=== PATIENT | male | born 1955 | race Caucasian/White ===

== ENCOUNTER 2016-10-29 11:46 | Emergency (ER) | payer OTHER ==
[~2016-10-29] VITALS: Ht 175.3 cm; Wt 80.0 kg
[~2016-10-29 11:46] MED LIST: LEVO.15 PO; VALT1TAB26 PO; [UNRECOGNIZED DRUG - CODE] PO
[2016-10-29 11:49] VITALS: BP 106/67; PULSE 116; RESP 16; TEMP 97.7; O2SAT 97
[2016-10-29] MEDS ORDERED: SODIUM CHLOR 0.9% 1000 ML INJ 1,000 ML IV SCH (12:31)
[2016-10-29] MEDS ORDERED: BACT800T5 PO (12:34)
[2016-10-29] MEDS ORDERED: [UNRECOGNIZED DRUG - CODE] PO (12:34)
[2016-10-29] MEDS ORDERED: LEVO.2 PO (12:34)
[2016-10-29] MEDS ORDERED: VALA1TAB PO (12:34)
[2016-10-29 12:35] VITALS: O2SAT 97
[2016-10-29] MEDS ORDERED: SODIUM CHLORIDE 0.9% FLUSH 5 ML FLUSH IVF PRN ×2 (12:45→16:00)
[2016-10-29] MEDS ORDERED: ONDANSETRON HCL 4 MG/2 ML VIAL IVP ONE (12:45)
[2016-10-29 13:01] LABS: BASOPHIL % 0.2 % (0.0-2.0); EOSINOPHIL % 0.3 % (0.0-4.0); HEMATOCRIT 47.2 % (39.0-51.0); HEMO FLAGS DIFF FINAL; LYMPH % 44.3 % (9.0-44.0); LYMPHOCYTE # 2.9 TH/MM3 (1.0-4.8); MEAN CELL VOLUME 96.4 FL (80.0-100.0); MEAN CORPUSCULAR HEMOGLOBIN 33.6 PG (27.0-34.0); MEAN CORPUSCULAR HGB CONC 34.9 % (32.0-36.0); MONO % 8.8 % (0.0-8.0); NEUT % 46.4 % (16.0-70.0); PLATELET COUNT 161 TH/MM3 (150-450); RED CELL DISTRIBUTION WIDTH 13.4 % (11.6-17.2); WHITE BLOOD COUNT 6.5 TH/MM3 (4.0-11.0)
[2016-10-29 13:19] LABS: ANION GAP 11 MEQ/L (5-15); AST (GOT) 30 U/L (15-37); BICARBONATE 20.1 MEQ/L (21.0-32.0); BLOOD UREA NITROGEN 15 MG/DL (7-18); CHLORIDE 105 MEQ/L (98-107); GLOMERULAR FILTRATION RATE 73 ML/MIN (>89); POTASSIUM 3.4 MEQ/L (3.5-5.1); SODIUM (NA) 136 MEQ/L (136-145)
[2016-10-29 13:22] LABS: ALKALINE PHOSPHATASE 51 U/L (45-117); ALT (GPT) 48 U/L (12-78); TOTAL BILIRUBIN ADULT 0.8 MG/DL (0.2-1.0)
--- NOTE | 2016-10-29 13:45 | PD ---
HPI Chief Complaint: GI Complaint Time Seen by Provider: 12:38 Travel History International Travel<30 days: No Contact w/Intl Traveler<30days: No Traveled to known affect area: No History of Present Illness HPI 61-year-old male presents with nonbloody vomiting and diarrhea with abdominal pain. This is been present over the past week. He states that he first started having diarrhea developed abdominal pain a couple days ago and then yesterday developed vomiting. He denies other specific complaints. Quality is nonbloody. Severity is multiple episodes. He denies recurrent history of this. He denies migration of the pain. He states that he is on chemotherapy pills PFSH Past Medical History Arthritis: No Asthma: Yes Blood Disorders: No Heart Rhythm Problems: No Cancer: Yes (HX OF PAPILLARY THYROID CA, CHRONIC LYMPHOCYTIC LEUKEMIA) Cardiovascular Problems: No High Cholesterol: Yes Chemotherapy: Yes (po last taken tue) Chest Pain: No Congestive Heart Failure: No COPD: No Cerebrovascular Accident: No Diabetes: No Diminished Hearing: No Endocrine: Yes Genitourinary: No Hepatitis: No Hiatal Hernia: No Hypertension: No Immune Disorder: Yes (CHRONIC LYMPHOCYTIC LEUKEMIA--CLL) Implanted Vascular Access Dvce: Yes (powerport) Musculoskeletal: Yes (hx of back surgery diskectomy) Psychiatric: No Reproductive: No Respiratory: Yes (spot shown ON RLL chronic cough) Immunizations Current: No Migraines: No Seizures: No Sickle Cell Disease: No Sleep Apnea: No Thyroid Disease: Yes (HX OF PAPPILARY THYROID CA, NO THYROID) Past Surgical History Abdominal Surgery: No AICD: No Arteriovenous Shunt: No Body Medical Devices: RIGHT FOOT PLATE AND SCREWS, PORT RT CHEST Cardiac Surgery: No Ear Surgery: No Endocrine Surgery: Yes (THYROIDECTOMY 2009) Eye Surgery: No Genitourinary Surgery: No Gynecologic Surgery: No Insulin Pump: No Joint Replacement: No Neurologic Surgery: Yes (LOWER BACK DISCECTOMY --1986 carpal tunnel right wrist) Oral Surgery: No Pacemaker: No Thoracic Surgery: No Other Surgery: Yes Social History Alcohol Use: No Tobacco Use: No Substance Use: No Allergies-Medications (Allergen,Severity, Reaction): Coded Allergies: No Known Allergies (Verified , 10/29/16) Reported Meds & Prescriptions Reported Meds & Active Scripts Active Zofran Odt (Ondansetron Odt) 4 Mg Tab 4 Mg SL Q6HR PRN Reported Bactrim DS (Sulfamethoxazole-Trimethoprim) 800-160 Mg Tab 1 Tab PO BID Valacyclovir (Valacyclovir HCl) 1 Gm Tab 1,000 Mg PO DAILY Synthroid (Levothyroxine Sodium) 200 Mcg Tab 200 Mcg PO DAILY Zydelig (Idelalisib) 150 Mg Tab 150 Mg PO BID Review of Systems Except as stated in HPI: all other systems reviewed are Neg Physical Exam Narrative GENERAL: Well-nourished, well-developed patient. SKIN: Warm and dry. HEAD: Normocephalic and atraumatic. EYES: No injection or drainage. ENT: No nasal drainage noted. NECK: Supple, trachea midline. CARDIOVASCULAR: Regular rate and rhythm RESPIRATORY: No increased effort. No accessory muscle use. GASTROINTESTINAL: Abdomen soft, tender left mid abdomen, nondistended. We'll NEUROLOGICAL: Awake and alert. Moves all extremities. Normal speech. Data Data Last Documented VS Vital Signs Date Time Temp Pulse Resp B/P Pulse Ox O2 Delivery O2 Flow Rate FiO2 10/29/16 12:35 97 10/29/16 11:49 97.7 116 16 106/67 Orders Complete Blood Count With Diff (10/29/16 12:31) Comprehensive Metabolic Panel (10/29/16 12:31) Lipase (10/29/16 12:31) Urinalysis - C+S If Indicated (10/29/16 12:31) Ct Abd/Pel W Iv Contrast(Rout) (10/29/16 12:31) Iv Access Insert/Monitor (10/29/16 12:31) Ecg Monitoring (10/29/16 12:31) Oximetry (10/29/16 12:31) NPO (10/29/16 12:31) Ondansetron Inj (Zofran Inj) (10/29/16 12:45) Sodium Chlor 0.9% 1000 Ml Inj (Ns 1000 M (10/29/16 12:31) Sodium Chloride 0.9% Flush (Ns Flush) (10/29/16 12:45) Iohexol 350 Inj (Omnipaque 350 Inj) (10/29/16 13:47) Labs Laboratory Tests Test 10/29/16 10/29/16 12:48 14:15 White Blood Count 6.5 TH/MM3 Red Blood Count 4.90 MIL/MM3 Hemoglobin 16.5 GM/DL Hematocrit 47.2 % Mean Corpuscular Volume 96.4 FL Mean Corpuscular Hemoglobin 33.6 PG Mean Corpuscular Hemoglobin 34.9 % Concent Red Cell Distribution Width 13.4 % Platelet Count 161 TH/MM3 Mean Platelet Volume 7.2 FL Neutrophils (%) (Auto) 46.4 % Lymphocytes (%) (Auto) 44.3 % Monocytes (%) (Auto) 8.8 % Eosinophils (%) (Auto) 0.3 % Basophils (%) (Auto) 0.2 % Neutrophils # (Auto) 3.0 TH/MM3 Lymphocytes # (Auto) 2.9 TH/MM3 Monocytes # (Auto) 0.6 TH/MM3 Eosinophils # (Auto) 0.0 TH/MM3 Basophils # (Auto) 0.0 TH/MM3 CBC Comment DIFF FINAL Differential Comment Sodium Level 136 MEQ/L Potassium Level 3.4 MEQ/L Chloride Level 105 MEQ/L Carbon Dioxide Level 20.1 MEQ/L Anion Gap 11 MEQ/L Blood Urea Nitrogen 15 MG/DL Creatinine 1.04 MG/DL Estimat Glomerular Filtration 73 ML/MIN Rate Random Glucose 102 MG/DL Calcium Level 7.7 MG/DL Total Bilirubin 0.8 MG/DL Aspartate Amino Transf 30 U/L (AST/SGOT) Alanine Aminotransferase 48 U/L (ALT/SGPT) Alkaline Phosphatase 51 U/L Total Protein 5.3 GM/DL Albumin 2.8 GM/DL Lipase 92 U/L Urine Color YELLOW Urine Turbidity CLEAR Urine pH 6.0 Urine Specific [place] 1.048 Urine Protein TRACE mg/dL Urine Glucose (UA) NEG mg/dL Urine Ketones 10 mg/dL Urine Occult Blood NEG Urine Nitrite NEG Urine Bilirubin NEG Urine Urobilinogen LESS THAN 2.0 MG/DL Urine Leukocyte Esterase NEG Urine WBC 1 /hpf Urine Granular Casts 5 /lpf Microscopic Urinalysis Comment CULT NOT INDICATED MDM Medical Decision Making Medical Screen Exam Complete: Yes Emergency Medical Condition: Yes Medical Record Reviewed: Yes (past history confirmed) Interpretation(s) CBC & BMP Diagram 10/29/16 12:48 Last 24 hours Impressions Abdomen/Pelvis CT 10/29/16 1231 Signed Impressions: Service Date/Time: Saturday, October 29, 2016 13:33 - CONCLUSION: 1. Mild enteritis possible in the proper clinical setting. No high-grade inflammatory changes. No bowel obstruction. 2. Splenomegaly and with at least 2 vague subcentimeter low density splenic lesions that are indeterminate but statistically most likely benign. 3. Atherosclerotic plaque of the abdominal aorta. No aneurysm. Ulisses Herrera MD Differential Diagnosis Diverticulitis, stone, UTI, gastroenteritis Narrative Course Will check blood work, urinalysis, CT scan abdominal pelvis and reevaluate ed workup with mild enteritis, no vomiting here, Patient denies any new complaints and states that they are feeling better. Patient happy with care, all questions answered. Patient knows that follow up is incumbent on them and to return to the emergency room immediately if new or worsening symptoms develop. Patient given strict return precautions, vitals reviewed and are normal , agrees to further workup as an outpatient. Diagnosis Primary Impression: Vomiting and diarrhea Patient Instructions: General Instructions Additional Instructions: zofran as needed, keep hydrated, follow with primary tuesday Med/Other Pt SpecificInfo: Prescription(s) given Scripts Ondansetron Odt (Zofran Odt)4 Mg Tab4 Mg SL Q6HR PRN (Nausea/Vomiting) #10 TAB Prov:Lupe Hernandez MD 10/29/16 Disposition: 01 DISCHARGE HOME Condition: Stable Lupe Hernandez MD Oct 29, 2016 13:45
[2016-10-29] MEDS ORDERED: IOHEXOL 350 MG/ML 10 ML VIAL (for RAD DIAG) IV ONE (13:47)
--- NOTE | 2016-10-29 13:54 | RADRPT ---
EXAM DATE/TIME: 10/29/2016 13:33 [facility] COMPARISON: No previous studies available for comparison. INDICATIONS : Abdomen pain,vomiting. IV CONTRAST: 99 cc Omnipaque 350 (iohexol) IV ORAL CONTRAST: No oral contrast ingested. RADIATION DOSE: 9.96 CTDIvol (mGy) MEDICAL HISTORY : Leukemia. SURGICAL HISTORY : Fusion, lumbar. ENCOUNTER: Initial ACUITY: 1 day PAIN SCALE: 4/10 LOCATION: TECHNIQUE: Volumetric scanning of the abdomen and pelvis was performed. Using automated exposure control and ad justment of the mA and/or kV according to patient size, radiation dose was kept as low as reasonably achievable to obtain optimal diagnostic quality images. FINDINGS: LOWER LUNGS: The visualized lower lungs are clear. LIVER: A few scattered cysts measuring up to 14 mm in size. SPLEEN: Mildly enlarged, 15.3 cm craniocaudal. There is an 8mm indeterminate hypodensity inferiorly in the sp adeline. A similar one is suspected near the hilum as well. PANCREAS: Within normal limits. KIDNEYS: Normal in size and shape. There is no mass, stone or hydronephrosis. ADRENAL GLANDS: Within normal limits. VASCULAR: There is atherosclerosis of the abdominal aorta. No aneurysm. BOWEL/MESENTERY: Upper limits of normal caliber and mild wall thickening seen of proximal jejunum. No evidence of obst ruction. There is some fluid in the colon. The appendix is normal. ABDOMINAL WALL: Within normal limits. RETROPERITONEUM: There is no lymphadenopathy. BLADDER: No wall thickening or mass. REPRODUCTIVE: Within normal limits. INGUINAL: There is no lymphadenopathy or hernia. MUSCULOSKELETAL: Within normal limits for patient age. CONCLUSION: 1. Mild enteritis possible in the proper clinical setting. No high-grade inflammatory changes. No bow el obstruction. 2. Splenomegaly and with at least 2 vague subcentimeter low density splenic lesions that are indeterm inate but statistically most likely benign. 3. Atherosclerotic plaque of the abdominal aorta. No aneurysm. Ulisses Herrera MD on October 29, 2016 at 13:48 Board Certified Radiologist. This report was verified electronically.
[2016-10-29 15:08] LABS: BLOOD, URINE NEG (NEG); COMMENT (UR) CULT NOT INDICATED; CULTURE IF INDICATED CULT NOT INDICATED; GLUCOSE,URINE NEG (NEG); GRANULAR CAST, URINE 5 /lpf; KETONE, URINE 10 mg/dL (NEG); NITRITE,URINE NEG (NEG); URINE COLOR YELLOW (YELLW/STRAW)
[2016-10-29] MEDS ORDERED: ZOFR4TAB3 SL (15:20)
== END 2016-10-29 17:12 | disposition home or self-care (01) ==
LOC: NEPC 11:46
DX: R11.10 Vomiting, unspecified (principal); R19.7 Diarrhea, unspecified; J45.909 Unspecified asthma, uncomplicated; E78.00 Pure hypercholesterolemia, unspecified; Z85.850 Personal history of malignant neoplasm of thyroid
CPT/HCPCS: 74177; 80053; 81001; 83690; 85025; 96374; 99284; J2405; J7030; Q9967

== ENCOUNTER 2017-01-19 13:41 | Emergency (ER) | payer OTHER ==
[~2017-01-19] VITALS: Ht 175.3 cm; Wt 76.0 kg
[~2017-01-19 13:41] MED LIST changes: +BACT800T5 PO; -LEVO.15 PO; +LEVO.2 PO; +VALA1TAB PO; -VALT1TAB26 PO; +ZOFR4TAB3 SL
[2017-01-19 13:43] VITALS: BP 142/69; PULSE 96; RESP 20; TEMP 98.2; O2SAT 98
--- NOTE | 2017-01-19 14:44 | PD ---
HPI Chief Complaint: Allergic/Adverse Reaction Time Seen by Provider: 13:56 Travel History International Travel<30 days: No Contact w/Intl Traveler<30days: No Traveled to known affect area: No History of Present Illness HPI Patient is a 61-year-old male who presents to emergency room for evaluation of possible blood clot to his arms. patient reports that he has leukemia, reports that 2 weeks ago he started a new chemotherapy agent, Revlimid. Patient reports that for the past few days, he has noticed increased swelling and numbness to both his forearms. Patient did call his oncologist at [facility] in [place] where he is being treated (Dr. Kulwinder Stevens) and was told to go to the ER for an US of his b/l upper extremities as there are concerns for a DVT. patient reports that he has been battling leukemia 8 years , reports that one of his past chemotherapy agent caused him to have bleeding into his wrist which he ultimately developed carpal tunnel syndrome and needed surgical treatment for this. Patient reports no complaints at this time, no fevers or chills, no nausea or vomiting. Patient reports pain similar to his wrist and swelling. Patient with no shortness of breath, no history of DVT or PE in the past. Patient's local oncologist is Dr. Luna [facility] Past Medical History Arthritis: No Asthma: Yes Blood Disorders: No Heart Rhythm Problems: No Cancer: Yes (leukemia for 8 years. ) Cardiovascular Problems: No High Cholesterol: Yes Chemotherapy: Yes Chest Pain: No Congestive Heart Failure: No COPD: No Cerebrovascular Accident: No Diabetes: No Diminished Hearing: No Endocrine: Yes Genitourinary: No Hepatitis: No Hiatal Hernia: No Hypertension: No Immune Disorder: Yes (CHRONIC LYMPHOCYTIC LEUKEMIA--CLL) Implanted Vascular Access Dvce: Yes (powerport) Musculoskeletal: Yes (hx of back surgery diskectomy) Psychiatric: No Reproductive: No Respiratory: Yes (spot shown ON RLL chronic cough) Immunizations Current: No (unable to take related to meds that he is taking) Migraines: No Seizures: No Sickle Cell Disease: No Sleep Apnea: No Thyroid Disease: Yes (HX OF PAPPILARY THYROID CA, NO THYROID) Tetanus Vaccination: Unknown ?: Not Past Surgical History Abdominal Surgery: No AICD: No Arteriovenous Shunt: No Body Medical Devices: RIGHT FOOT PLATE AND SCREWS, PORT RT CHEST Cardiac Surgery: No Ear Surgery: No Endocrine Surgery: Yes (THYROIDECTOMY 2010) Eye Surgery: No Genitourinary Surgery: No Gynecologic Surgery: No Insulin Pump: No Joint Replacement: No Neurologic Surgery: Yes (LOWER BACK DISCECTOMY --1986 carpal tunnel right wrist) Oral Surgery: No Pacemaker: No Thoracic Surgery: No Other Surgery: Yes (thyroid removal, power port right chest.) Social History Alcohol Use: Yes (beer on occassion) Tobacco Use: No Substance Use: No Allergies-Medications (Allergen,Severity, Reaction): Coded Allergies: No Known Allergies (Verified , 01/19/17) Reported Meds & Prescriptions Reported Meds & Active Scripts Active Zofran Odt (Ondansetron Odt) 4 Mg Tab 4 Mg SL Q6HR PRN Reported Bactrim DS (Sulfamethoxazole-Trimethoprim) 800-160 Mg Tab 1 Tab PO BID Valacyclovir (Valacyclovir HCl) 1 Gm Tab 1,000 Mg PO DAILY Synthroid (Levothyroxine Sodium) 200 Mcg Tab 200 Mcg PO DAILY Zydelig (Idelalisib) 150 Mg Tab 150 Mg PO BID Review of Systems General / Constitutional: No: Fever Eyes: No: Visual changes HENT: No: Headaches Cardiovascular: No: Chest Pain or Discomfort Respiratory: No: Shortness of Breath Gastrointestinal: No: Abdominal Pain Genitourinary: No: Dysuria Musculoskeletal: Positive: Edema, Pain Skin: No Rash Neurologic: No: Weakness Psychiatric: No: Depression Endocrine: No: Polydipsia Hematologic/Lymphatic: No: Easy Bruising Physical Exam Narrative GENERAL: nad. nontoxic SKIN: Focused skin assessment warm/dry. HEAD: Atraumatic. Normocephalic. EYES: Pupils equal and round. No scleral icterus. No injection or drainage. ENT: No nasal bleeding or discharge. Mucous membranes pink and moist. NECK: Trachea midline. No JVD. CARDIOVASCULAR: Regular rate and rhythm. No murmur appreciated. RESPIRATORY: No accessory muscle use. Clear to auscultation. Breath sounds equal bilaterally. GASTROINTESTINAL: Abdomen soft, non-tender, nondistended. Hepatic and splenic margins not palpable. MUSCULOSKELETAL: No obvious deformities. No clubbing. No cyanosis. patient with mild swelling to both wrists. patient with normal neuro and muscle exam of bilateral extremities, pulses intact, neurovascularly intact NEUROLOGICAL: Awake and alert. No obvious cranial nerve deficits. Motor grossly within normal limits. Normal speech. PSYCHIATRIC: Appropriate mood and affect; insight and judgment normal. Data Data Last Documented VS Vital Signs Date Time Temp Pulse Resp B/P Pulse Ox O2 Delivery O2 Flow Rate FiO2 01/19/17 18:07 18 01/19/17 18:05 86 100 01/19/17 18:05 97.7 136/75 Room Air Orders Us Arm Venous Doppler Bilat (01/19/17 ) Basic Metabolic Panel (Bmp) (01/19/17 14:33) Prothrombin Time / Inr (Pt) (01/19/17 14:33) Act Partial Throm Time (Ptt) (01/19/17 14:33) Morphine Inj (Morphine Inj) (01/19/17 14:45) Protein Corrected Calcium(Pcc) (01/19/17 14:25) Labs Laboratory Tests Test 01/19/17 14:25 Prothrombin Time 11.0 SEC Prothromb Time International 1.0 RATIO Ratio Activated Partial 25.9 SEC Thromboplast Time Sodium Level 138 MEQ/L Potassium Level 4.2 MEQ/L Chloride Level 107 MEQ/L Carbon Dioxide Level 23.4 MEQ/L Anion Gap 8 MEQ/L Blood Urea Nitrogen 11 MG/DL Creatinine 0.91 MG/DL Estimat Glomerular Filtration 85 ML/MIN Rate Random Glucose 104 MG/DL Calcium Level 7.3 MG/DL Protein Corrected Calcium 8.1 MG/DL Total Protein 5.6 GM/DL [facility] Medical Decision Making Medical Screen Exam Complete: Yes Emergency Medical Condition: Yes Interpretation(s) Vital Signs Date Time Temp Pulse Resp B/P Pulse Ox O2 Delivery O2 Flow Rate FiO2 01/19/17 14:00 Room Air 01/19/17 13:43 98.2 96 20 142/69 98 Room Air Differential Diagnosis DVT,electrolyte abnormality Narrative Course 61-year-old male who presents to emergency room at request of his oncologist at [facility] for ultrasound of his upper extremities to rule out DVT as he recently started a new chemotherapy agent 2 weeks ago. Patient with no other complaints at this time. Plan to check basic labs, ultrasound of the upper extremity was ordered to rule out DVT. Vital Signs Date Time Temp Pulse Resp B/P Pulse Ox O2 Delivery O2 Flow Rate FiO2 01/19/17 18:07 18 01/19/17 18:05 86 100 01/19/17 18:05 97.7 86 16 136/75 100 Room Air 01/19/17 15:31 86 16 136/74 99 Room Air 01/19/17 14:00 Room Air 01/19/17 13:43 98.2 96 20 142/69 98 Room Air Laboratory Tests Test 01/19/17 14:25 Prothrombin Time 11.0 SEC (9.8-11.6) Prothromb Time International 1.0 RATIO Ratio Activated Partial 25.9 SEC Thromboplast Time (24.3-30.1) Sodium Level 138 MEQ/L (136-145) Potassium Level 4.2 MEQ/L (3.5-5.1) Chloride Level 107 MEQ/L (98-107) Carbon Dioxide Level 23.4 MEQ/L (21.0-32.0) Anion Gap 8 MEQ/L (5-15) Blood Urea Nitrogen 11 MG/DL (7-18) Creatinine 0.91 MG/DL (0.60-1.30) Estimat Glomerular Filtration 85 ML/MIN (>89) Rate Random Glucose 104 MG/DL (74-106) Calcium Level 7.3 MG/DL (8.5-10.1) Protein Corrected Calcium 8.1 MG/DL (8.5-10.1) Total Protein 5.6 GM/DL (6.4-8.2) Last Impressions Upper Extremity Ultrasound 01/19/17 0000 Signed Impressions: Service Date/Time: Thursday, January 19, 2017 14:51 - CONCLUSION: No evidence of upper extremity DVT on the right or left. Reg Solorio MD patient will follow up with his oncologist and will return to ER as needed. patient feeling better understands signs and symptoms of when to return to the ER Diagnosis Primary Impression: Swollen arm Additional Impression: Hypocalcemia Patient Instructions: General Instructions, Narcotic given in the ED Additional Instructions: Please give patient a copy of your lab work at discharge Please follow up with your oncologist as soon as possible Return to ER as needed Please return to ER if symptoms worsen or progress Med/Other Pt SpecificInfo: Prescription(s) given Scripts Oxycodone-Acetaminophen (Percocet)5-325 mg Tab1 Tab PO Q6H PRN (PAIN) #12 TAB Ref 0 Prov:Olivia Kelley DO 01/19/17 Disposition: 01 DISCHARGE HOME Condition: Stable Olivia Kelley DO January 19, 2017 14:44
[2017-01-19] MEDS ORDERED: MORPHINE SULFATE 4 MG/ML INJ IV PUSH ONE (14:45)
[2017-01-19 15:24] LABS: APTT (PATIENT) 25.9 SEC (24.3-30.1)
[2017-01-19 15:31] VITALS: BP 136/74; PULSE 86; RESP 16; O2SAT 99
--- NOTE | 2017-01-19 15:34 | RADRPT ---
EXAM DATE/TIME: 01/19/2017 14:51 [facility] COMPARISON: No previous studies available for comparison. INDICATIONS : MEDICAL HISTORY : Hypercholesterolemia. Chronic lymphocytic leukemia. Thyroid cancer. SURGICAL HISTORY : Thyroidectomy. Discectomy. Right carpal tunnel. ENCOUNTER: Initial ACUITY: 1 day PAIN SCORE: 0/10 LOCATION: Bilateral arm. FINDINGS: RIGHT UPPER EXTREMITY: There is spontaneous flow documented in the brachial, basilic, cephalic, axillary, and subclavian vei ns. The vessels are compressible and augmentation response is documented. No filling defects are se en. The flow is phasic with respiration. Direction of flow in the jugular vein is caudal. LEFT UPPER EXTREMITY: There is spontaneous flow documented in the brachial, basilic, cephalic, axillary, and subclavian vei ns. The vessels are compressible and augmentation response is documented. No filling defects are se en. The flow is phasic with respiration. Direction of flow in the jugular vein is caudal. CONCLUSION: No evidence of upper extremity DVT on the right or left. Reg Solorio MD on January 19, 2017 at 15:31 Board Certified Radiologist. This report was verified electronically.
[2017-01-19 15:49] LABS: BICARBONATE 23.4 MEQ/L (21.0-32.0); POTASSIUM 4.2 MEQ/L (3.5-5.1)
[2017-01-19 16:38] LABS: CALCIUM-PROTEIN CORRECTED 8.1 MG/DL (8.5-10.1)
[2017-01-19 18:05] VITALS: BP 136/75; PULSE 86; RESP 16; TEMP 97.7; O2SAT 100
[2017-01-19 18:07] VITALS: RESP 18
[2017-01-19] MEDS ORDERED: PERC5TAB12 PO (19:21)
[2017-01-19] MEDS ORDERED: CALCIUM GLUCONATE INJ 2 GM in SODIUM CHLORIDE 0.9% INJ 100 ML IV ONE (19:30)
== END 2017-01-19 21:03 | disposition home or self-care (01) ==
LOC: NEPE 13:41
DX: M79.89 Other specified soft tissue disorders (principal); E83.51 Hypocalcemia; C95.90 Leukemia, unspecified not having achieved remission; J45.909 Unspecified asthma, uncomplicated; E78.00 Pure hypercholesterolemia, unspecified; Z85.850 Personal history of malignant neoplasm of thyroid
CPT/HCPCS: 80048; 84155; 85610; 85730; 93970; 96374; 96375; 99285; J0610; J2270